=== PATIENT | female | born 1935 | race Caucasian/White ===

== ENCOUNTER → 2020-01-05 18:28 | Outpatient (ROUT) | payer MEDICARE, OTHER, SELFPAY ==
[2020-01-05 19:10] LABS: Alanine Aminotransferase 101 IU/L (<35); Albumin 3.9 g/dL (3.5-5.0); Albumin Globulin Ratio 0.9 (1.0-2.8); Alkaline Phosphatase 330 U/L (38-126); Aspartate Aminotransferase 118 IU/L (14-36); Bilirubin Total 0.9 mg/dL (0.2-1.3); Bilirubin Unconjugated 0.7 mg/dL (0.0-1.1); Cholesterol 130 mg/dL (140-199); Globulin 4.2 g/dL (1.7-4.1); HDL Cholesterol 64 mg/dL (40-60); HEMOLYSIS < 15 (0-50); LDL Cholesterol Calculated 57 mg/dL (<100); Total Protein 8.1 g/dL (6.3-8.2); Triglycerides 46 mg/dL (35-150)
[2020-01-05 19:39] LABS: TSH w/ Reflex to FT4 8.64 uIU/mL (0.47-4.68)
[2020-01-05 20:32] LABS: Free T4, Direct Thyroxine 1.31 ng/dL (0.78-2.19)
== END ==
PROVIDERS: Visit Provider Internal Medicine
DX: K74.3 Primary biliary cirrhosis (principal); E78.2 Mixed hyperlipidemia; E03.9 Hypothyroidism, unspecified
CPT/HCPCS: 80061; 80076; 84439; 84443

== ENCOUNTER 2022-09-07 13:57 | Outpatient (CLI) | payer MEDICARE, SELFPAY ==
[2022-09-07] VITALS (8 sets, daily range): BP systolic 123–168; BP diastolic 58–76; PULSE 56–63; RESP 14–23; TEMP 37.1; O2SAT 96–98
--- NOTE | 2022-09-07 13:58 | DI.RAD.S_ITS ---
PROCEDURE: PAIN L/S TRANSFORAMINAL INJECT INDICATIONS: SPONDYLOSIS COMPARISON: None. FINDINGS: Fluoroscopic spot filming was performed to verify placement of spinal needles at the L4-5 level(s), as labeled on the films. Appropriate location(s) of the needle tip(s) was confirmed by injection of iodinated contrast. IMPRESSION: Fluoroscopic images demonstrate localization of the left L4-5 facet. Dictated by: Latha Arango M.D. on 09/07/2022 at 17:34 Approved by: Latha Arango M.D. on 09/07/2022 at 17:35
[2022-09-07] MEDS: MIDAZOLAM 2 MG/2 ML VIAL 1 MG IV (15:25)
[2022-09-07] MEDS: BUPIVACAINE 0.25% (PF) VIAL 2 ML INJ (15:30)
[2022-09-07] MEDS: IOPAMIDOL 15 ML VIAL 3 ML INJ (15:30)
[2022-09-07] MEDS: DEXAMETHASONE 10 MG/ML VIAL 20 MG INJ (15:30)
[2022-09-07] MEDS: BETAMETHASONE 30 MG/5 ML MDV 6 MG INJ (15:31)
--- NOTE | 2022-09-07 15:39 | P.PCN_ITS ---
Date/Time/Diagnoses Date of procedure: 09/07/22 Time of procedure: 15:39 Pre-procedure diagnosis: 1. FORAMINAL STENOSIS WITH LE SYMPTOMS Post-procedure diagnosis: same Procedure Notes Procedure: 1. FLUOROSCOPICALLY GUIDED CONTRAST CONTROLLED TRANSFORAMINAL EPIDURAL STEROID INJECTION - RIGHT L4/5 TFESI Indications: Emy is referred for treatment of Foraminal Stenosis with Right LE Symptoms Physician: Jeyson Fontanez Total Fluoroscopy time (seconds): 12 Total sedation minutes: 12 Complications: none Procedure in detail & Post-procedure care: FINDINGS Foraminal Nerve Root Compression secondary to disc disease and facet hypertrophy DESCRIPTION OF PROCEDURE Following review of allergy and review of potential side effects and complications, including, but not necessarily limited to, infection, allergic reaction, local tissue breakdown, stroke, temporary or permanent nerve injury, paralysis, and possible , the patient indicated that the patient understood and agreed to proceed. An informed consent document was signed by the patient, witnessed by a nurse, and placed in the patient's chart. Additionally, other treatment options including medications, modalities, and physical therapy were reviewed with the patient. After review of previous anaesthesic history and IV conscious sedation the patient was deemed safe to proceed with today?s procedure with IV conscious sedation as ASA class II designation. Safety time-out was performed to confirm patient ID, procedure to be performed and site of procedure. IV sedation was accomplished with a combination of 1mg of Versed was administered by the RN after DO order, titrated to patient comfort during the course of the procedure while the patient remained responsive to all verbal commands In the prone position following sterile prep and drape of the lumbar region, the right L4/5 posterior neuroforamen was identified fluoroscopically. The skin was anesthetized via a 25-gauge 1.5-inch needle with 1% lidocaine solution. At this point, a 25-gauge 3.5-inch spinal needle was atraumatically introduced and advanced under fluoroscopic guidance through the posterior right L4/5 neuroforamen to approximately the anterior aspect of the canal. Depth was confirmed on lateral view. Following negative aspiration, injection of approximately 1.5cc of Isovue 200 under live fluoroscopy in the AP view confirmed excellent flow along the nerve root, into the epidural space without vascular or intrathecal uptake observed Radiological data, including multiple fluoroscopic views of the lumbosacral spine, reveal a spinal needle at the right L4/5 posterior neuroforamen. Subsequent views show flow of contrast material flowing superiorly and inferiorly along the nerve root confirming epidural flow. Subsequently, a test dose of 1.5 cc of 1% lidocaine solution was administered and patient was observed for two minutes for signs or symptoms of complications, including abdominal pain, shortness of breath, bilateral upper or lower extremity weakness, nausea and vomiting, prior to steroid injection. At this point, a total of 3cc or 20mg of dexamethasone and 6mg of betamethasone was injected without incident. The procedure tolerated the procedure well without signs or symptoms of complications prior to transfer to the recovery area continued monitoring without incident. The patient was then transferred to the recovery area where they were observed for an appropriate time after the injection. The patient reported a VAS score of 7 prior to the procedure and a post- procedure VAS of 0. POST OP INSTRUCTIONS The patient was provided a Pain Log to continue to record their response to the target-specific procedure prior to follow-up visit with their referring physician. Additionally, specific post-injection care instructions and a contact number to our office were provided if concerns arise regarding possible complications associated with the procedure are suspected.
== END 2022-09-07 16:00 | disposition home or self-care (01) ==
PROVIDERS: Referring Provider Physical Medicine & Rehabilitation; Visit Provider Physical Medicine & Rehabilitation
DX: M48.062 Spinal stenosis, lumbar region with neurogenic claudication (principal); M47.9 Spondylosis, unspecified
CPT/HCPCS: 64483; 99152; J0702; J1100; J2250; J3490

== ENCOUNTER → 2024-05-14 12:56 | Outpatient (CLI) | payer MEDICARE, SELFPAY ==
--- NOTE | 2024-05-14 12:58 | DI.RAD.S_ITS ---
PROCEDURE: XR LUMBAR SPINE MIN 4V INDICATIONS: LOW BACK PAIN TECHNIQUE: 5 views of the lumbar spine were acquired, including bilateral oblique views. COMPARISON: None. FINDINGS: Bones: 5 nonrib-bearing vertebrae are present. There is normal bony alignment. No vertebral body compression fractures. No suspicious bony lesions. Lower lumbar spine disc space narrowing and hypertrophic facet joints. Generalized decreased osseous mineralization noted. Grade 1 listhesis L4-5 Soft tissues: Overlying bowel gas pattern is normal. No suspicious soft tissue calcifications. Oblique images: No pars defects. IMPRESSION: Degenerative disc disease and arthropathy. Osteopenia. Approved by: Aubrey Elizabeth M.D. on 05/14/2024 at 14:38
--- NOTE | 2024-05-14 12:58 | DI.RAD.S_ITS ---
PROCEDURE: XR HIP W PEL IF DONE LT 2V INDICATIONS: LEFT HIP PAIN TECHNIQUE: 2 views of the hip were acquired. COMPARISON: None. 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 No hardware failure or loosening. Moderate right hip joint space narrowing and marginal osteophyte. Generalized decreased osseous mineralization noted. Degenerative changes noted lower lumbar spine. And flow PN tube occlusion clips noted in the pelvis Soft tissues: No suspicious soft tissue calcifications or masses. 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 on 05/14/2024 at 14:22
== END ==
PROVIDERS: Referring Provider Physical Medicine & Rehabilitation; Visit Provider Physical Medicine & Rehabilitation
DX: M51.16 Intervertebral disc disorders with radiculopathy, lumbar region (principal); M47.26 Other spondylosis with radiculopathy, lumbar region; M48.062 Spinal stenosis, lumbar region with neurogenic claudication; M25.552 Pain in left hip; M85.88 Other specified disorders of bone density and structure, other site; M70.61 Trochanteric bursitis, right hip; M05.9 Rheumatoid arthritis with rheumatoid factor, unspecified; M43.16 Spondylolisthesis, lumbar region; Z98.890 Other specified postprocedural states; Z96.642 Presence of left artificial hip joint
CPT/HCPCS: 20611; 72110; 73502; 99214; J0702

== ENCOUNTER → 2025-04-14 12:27 | Outpatient (CLI) | payer MEDICARE, SELFPAY ==
--- NOTE | 2025-04-14 12:57 | EKG_ITS ---
[place] [address] [place] [id number] Test Date: 2025-04-14 Pat Name: Emy Rodriguez Department: [facility] Room: Gender: Female Publicist: TAPAN : 1935 Requested By: Order Number: [id number] Reading MD: Trae Hampton Measurements Intervals Oden Rate: 57 P: 83 MT: 294 QRS: -60 QRSD: 138 T: 92 QT: 460 QTc: 447 Interpretive Statements Sinus bradycardia with 1st degree AV block Left axis deviation Left bundle branch block Electronically Signed On 04-15-2025 15:04:51 PST by Trae Hampton
[2025-04-14 13:53] LABS: Add Manual Diff / Slide Review NO; Hematocrit 38.5 % (36-46); Hemoglobin 13.0 g/dL (12.0-16.0); Lymphocytes Absolute Auto 2000 /uL (1100-4500); Mean Corpuscular HGB Conc 33.8 % (30-36); Mean Corpuscular Hemoglobin 31.3 PG (26-34); Mean Corpuscular Volume 92.7 fL (80-100); Platelet Count 180 X10^3/uL (150-400)
[2025-04-14 14:00] LABS: Hemoglobin A1C% w Est Avg Glu 5.1 % (4.0-6.0)
[2025-04-14 14:14] LABS: Albumin 4.2 g/dL (3.5-5.0); Blood Urea Nitrogen 23 mg/dL (7-17); Calcium 9.4 mg/dL (8.4-10.2); Carbon Dioxide 27 mmol/L (22-32); Chloride 105 mmol/L (98-107); Estimated Glomerular Filt Rate > 60 mL/min (>60); Glucose 86 mg/dL (70-99); HEMOLYSIS < 15 (0-50); Potassium 4.3 mmol/L (3.4-5.1); Sodium 138 mmol/L (137-145)
[2025-04-14 14:21] LABS: Prealbumin 19.4 mg/dL (17.6-36.0)
[2025-04-14 14:34] LABS: Vitamin D 25 Hydroxy (D3) 85.3 ng/mL (30.0-100.0)
== END ==
PROVIDERS: PCP Family Medicine; Referring Provider Orthopaedic Surgery Adult Reconstructive Orthopaedic Surgery; Visit Provider Orthopaedic Surgery Adult Reconstructive Orthopaedic Surgery
DX: Z01.818 Encounter for other preprocedural examination (principal); I10 Essential (primary) hypertension
CPT/HCPCS: 36415; 80048; 82040; 82306; 83036; 84134; 85025; 93005